=== PATIENT | female | born 1995 | race Caucasian/White ===

== ENCOUNTER → 2017-03-26 | Outpatient (CLI) | payer BC | END | disposition home or self-care (01) | LOC: C.PAPS 11:22 | PROVIDERS: ATTEND Obstetrics & Gynecology | DX: Z01.419 Encounter for gynecological examination (general) (routine) without abnormal findings (principal) ==

== ENCOUNTER → 2018-03-30 | Outpatient (CLI) | payer OTHER | END | disposition home or self-care (01) | LOC: C.LABSPEC 09:25 | PROVIDERS: ATTEND Obstetrics & Gynecology | DX: Z11.3 Encounter for screening for infections with a predominantly sexual mode of transmission (principal); Z11.8 Encounter for screening for other infectious and parasitic diseases ==

== ENCOUNTER → 2018-03-30 | Outpatient (CLI) | payer OTHER | END | disposition home or self-care (01) | LOC: C.PAPS 09:35 | PROVIDERS: ATTEND Obstetrics & Gynecology | DX: Z12.4 Encounter for screening for malignant neoplasm of cervix (principal) ==

== ENCOUNTER 2025-02-22 12:57 | Inpatient (IN) ==
[2025-02-22] MEDS ORDERED: LIDOCAINE 1% LOCAL 20 ML VIAL INFIL PRN (13:57)
[2025-02-22] MEDS ORDERED: CALCIUM CARBONATE 500 MG CHEWABLE TAB PO PRN (13:57)
--- NOTE | 2025-02-22 14:27 | History & Physical Report ---
Date of Service February 22, 2025 Assessment & Plan (1) Gestational diabetes: (2) Supervision of normal intrauterine in primigravida: Plan Pt is comfortable, but feeling regular contractions. Will consider ROM and epidural to progress labor as needed. - Consult to anesthesiology for epidural at pt's request - Consider ROM if pt desires/needed to progress labor - Consider Pitocin as needed for labor progression - Monitor progression of labor - Monitor BM's - CBC ordered History of Present Illness Chief Complaint: regular ctx Primary Care Provider: Jimenez Ramirez MD Carol is a 29 y/o female currently at 40/6 WGA with an CIARAN 02/18/25 as determined by LMP who is here for regular contractions and early labor. Her was complicated by GDM and hep B non-immune. Regular contractions; regular movement; no fluid loss; no bloody show Had regular appointments with OB. OB Labs: Blood Type O Positive 07/09/24 Antibody Screen NEGATIVE 07/09/24 Hgb 11.6 g/dl (12.0-16.0) L 12/02/24 Hct 34.5 % (37.0-47.0) L 12/02/24 MCV 87.1 fL (80.0-100.0) 07/09/24 Plt Count 355 K/uL (130-400) 07/09/24 Rubella IgG Antibody Immune (Immune) 07/09/24 Treponema pallidum Ab Negative (Negative) 12/02/24 Hep Bs Antigen Negative (Negative) 07/09/24 Hepatitis C Antibody Negative (Negative) 07/09/24 HIV 1&2 Ab/P24 Ag 4thGn Negative (Negative) 07/09/24 Glucose 1 Hr 50 gm 143 mg/dl (70-130) H 12/02/24 OB Optional Labs: Chlamydia trachomatis RNA Not Detected (NotDetected) 07/09/24 Neisseria gonorrhoeae RNA Not Detected (NotDetected) 07/09/24 Labs Reviewed: Declines carrier screening--mln Allergies Allergy/AdvReac Type Severity Reaction Status Date / Time No Known Allergies Allergy Verified 02/21/25 11:17 Home Medications Medication Instructions Recorded Confirmed Type calcium carbonate [Calcium 600] PO 01/27/24 02/21/25 History fish,bora,flax oils-om3,6,9no1 PO 01/27/24 02/21/25 History [[place] 3-6-9] folic acid PO 01/27/24 02/21/25 History prenat.vits,millie,myp-ihqo-mbmvr tab PO 01/27/24 02/21/25 History acetone (urine) test (Ketone Urine #50 ea 12/17/24 02/21/25 Rx Test strips) blood sugar diagnostic (OneTouch #150 ea 12/17/24 02/21/25 Rx Verio test strips) blood-glucose meter (OneTouch #1 ea 12/17/24 02/21/25 Rx Verio Reflect Meter) lancets 33 gauge (OneTouch Delica #150 ea 12/17/24 02/21/25 Rx Plus Lancet) Patient History Medical History (Updated 12/13/24 @ 11:38 by Mena Mistry) Varicella vaccination Missed Eustachian tube dysfunction Bilateral otitis media Surgical History Hx of elbow surgery Hx of oral surgery Family History Grandmother Alzheimer disease Other Hypertension Denies family history of Ovarian cancer Bipolar disorder Colorectal cancer Social History (Updated 07/02/24 @ 10:20 by Mena Mistry) Smoking Status: Never smoker Do You Dip or Chew Tobacco: No; Hx Alcohol Use: No Hx Substance Use: No Preferred Language: Andorran Hr Systems Analyst Required: No Beliefs That Will Affect Care: None marital status: marital status details: Luís Jones (34) [phone] Current Living Situation: Spouse Current Living Situation Comment: lives with spouse, dog current occupational status: employed current occupation: Realtor Feels Safe at Home: Yes Safety Concerns: Feels Safe At This Time Assistive Devices: None Review of Systems Denies fever, chills, sweats Denies shortness of breath, difficulty breathing, chest pain, palpitations, chest pressure. Denies breast pain. Denies dysuria. Denies headache or changes in vision Physical Exam Physical Exam: General: Alert, oriented. No acute distress. Cardiac: Regular rate and rhythm, no murmurs/rubs/gallops. Respiratory: Clear to auscultation bilaterally a/p, no wheezes/rales/rhonchi. No increased work of breathing. Symmetrical chest rise. No respiratory distress. Abdomen: Gravid; Position: Vertex Pelvic: Dilation 5 cm; Effacement 80%; Station +[address] Lynn Lower Extremities: No lower extremity edema or swelling. No deep calf pain. Miguel's negative bilaterally Results & Data Vital Signs (Past 12 Hours) Vital Signs Temp Pulse Resp BP 02/22/25 13:05 36.5 C 109 H 22 131/76 Monitoring External Monitor External FHT and external uterine monitors used; Category 1 tracing; moderate FHT variability. Tocodynamometer 60-80mmhg q5-7min Supervising Physician Co-Signing Physician Notes Resident Physician Supervision Note: I was present with Dr. Leonard during the history and exam. I discussed the case with the resident and agree with the findings and plan as documented in the note. Any exceptions or clarifications are listed here: at term in labor. sve as noted. fhts categ 1. preg c/b gdm, will check glucose q2hr in labor. gbs neg. admit. arom at next exam. epidural if desires. Documented By: Regina Lynn MD, FACOG Resident Activity Tracking Resident Involvement: Resident Care Provided Care Provided: Adult [facility]
[2025-02-22 14:30] LABS: Hematocrit (blood only) 34.1 % (37.0-47.0); Hemoglobin 11.5 g/dl (12.0-16.0); Mean Corpuscular Hemoglobin 27.4 pg (25.0-34.0); Mean Corpuscular Hgb Conc 33.7 g/dL (32.0-36.0); Mean Corpuscular Volume 81.2 fL (80.0-100.0); Mean Platelet Volume 10.1 fL (9.4-12.4); Platelet Count 342 K/uL (130-400); RDW Coefficient of Variation 14.6 % (11.5-14.5); RDW Standard Deviation 42.5 fL (36.4-46.3); White Blood Count 17.07 K/ul (4.8-10.8)
[2025-02-22] MEDS: LACTATED RINGER'S 1,000 ML IV PRN (14:54)
[2025-02-22] MEDS ORDERED: diphenhydrAMINE 50 MG/ML VIAL IV PRN (17:08)
[2025-02-22] MEDS ORDERED: NALOXONE HCL 0.4 MG/1 ML VIAL/CARP IV PRN (17:08)
[2025-02-22] MEDS ORDERED: fentANYL 2 MCG/ML BUPIVacaine 0.125%-NSS 100ML BAG EPI PRN (17:08)
[2025-02-22] MEDS ORDERED: ROPIVACAINE 0.5% PF 5 MG/ML 20 ML VIAL EPI PRN (17:08)
[2025-02-22] MEDS ORDERED: ePHEDrine sulfate 50 MG/ML AMP IV PRN (17:08)
[2025-02-22] MEDS ORDERED: NALBUPHINE HCL INJ 10 MG/ML AMP IV PRN (17:08)
[2025-02-22] MEDS ORDERED: fentaNYL citrate PF 100 MCG/2 ML VIAL EPI PRN (17:08)
[2025-02-22] MEDS ORDERED: SODIUM CHLORIDE 0.9% PF INJ 10 ML VIAL EPI PRN (17:08)
[2025-02-22] MEDS ORDERED: LIDOCAINE 2% MPF LOCAL 5 ML VIAL EPI PRN (17:08)
[2025-02-22] MEDS ORDERED: BUPIVACAINE 0.25% PF 30 ML VIAL EPI PRN (17:08)
[2025-02-22] MEDS ORDERED: NALOXONE HCL 1 MG in SODIUM CHLORIDE 0.9% 1,000 ML IV PRN (17:08)
--- NOTE | 2025-02-22 17:08 | Anesthesiology Consultation ---
Date of Service February 22, 2025 Assessment & Plan Chart Review Chart Review: Acceptable Risk for Labor Epidural Consults Requested none History Height/Weight Height: 5 ft 4 in Weight: 90.045 kg Allergies Allergy/AdvReac Type Severity Reaction Status Date / Time No Known Allergies Allergy Verified 02/21/25 11:17 Medications Home Medications Medication Instructions Recorded Confirmed Last Taken calcium carbonate [Calcium 600] PO 01/27/24 02/21/25 Unknown fish,bora,flax oils-om3,6,9no1 PO 01/27/24 02/21/25 Unknown [[place] 3-6-9] folic acid PO 01/27/24 02/21/25 Unknown prenat.vits,millie,dfy-rmah-ojqjd tab PO 01/27/24 02/21/25 Unknown acetone (urine) test (Ketone Urine #50 ea 12/17/24 02/21/25 Unknown Test strips) blood sugar diagnostic (OneTouch #150 ea 12/17/24 02/21/25 Unknown Verio test strips) blood-glucose meter (OneTouch #1 ea 12/17/24 02/21/25 Unknown Verio Reflect Meter) lancets 33 gauge (OneTouch Delica #150 ea 12/17/24 02/21/25 Unknown Plus Lancet) Active Medications Generic Name Dose Route Start Last Admin Trade Name Freq PRN Reason Stop Dose Admin Lactated Ringer's 1,000 mls @ 125 mls/hr 02/22/25 13:57 02/22/25 16:45 Lr IV 02/23/25 13:56 999 mls/hr .Q8H PRN Infusion L&D Protocol Protocol Past Medical History Medical History (Updated 12/13/24 @ 11:38 by Mena Mistry) Varicella vaccination Missed Eustachian tube dysfunction Bilateral otitis media Past Family History Family History Grandmother Alzheimer disease Other Hypertension Denies family history of Ovarian cancer Bipolar disorder Colorectal cancer Past Surgical History Surgical History Hx of elbow surgery Hx of oral surgery Social History Smoking Status: Never smoker Do You Dip or Chew Tobacco: No Hx Alcohol Use: No Hx Substance Use: No Physical Exam Vital Signs Last Vital Signs Temp 36.5 C 02/22/25 14:01 Pulse 88 02/22/25 17:03 Resp 22 02/22/25 14:01 BP 134/86 02/22/25 17:02 Pulse Ox 97 02/22/25 17:03 Testing Laboratory Results 02/22/25 14:09 02/22/25 15:27 POC Glucose 85
[2025-02-22] MEDS: fentANYL 2 MCG/ML BUPIVacaine 0.125%-NSS 100ML BAG ONE (17:20)
[2025-02-22] MEDS: LIDOCAINE 2%/EPINEPHRINE 1:200,000 20 ML PF ONE (17:20)
[2025-02-22] MEDS: BUPIVACAINE 0.25% PF 30 ML VIAL ONE (19:14)
[2025-02-22] MEDS: ePHEDrine sulfate 50 MG/ML AMP ONE (19:14)
[2025-02-22] MEDS: fentaNYL citrate PF 100 MCG/2 ML VIAL ONE (19:14)
[2025-02-22] MEDS: SODIUM CHLORIDE 0.9% PF INJ 10 ML VIAL ONE (19:15)
[2025-02-22] MEDS: fentaNYL citrate PF 100 MCG/2 ML VIAL EPI STA (19:15)
[2025-02-22] MEDS: BUPIVACAINE 0.25% PF 30 ML VIAL EPI STA (19:15)
[2025-02-22] MEDS: SODIUM CHLORIDE 0.9% PF INJ 10 ML VIAL EPI STA (19:15)
[2025-02-22] MEDS: LIDOCAINE 2%/EPINEPHRINE 1:200,000 20 ML PF EPI STA (19:15)
--- NOTE | 2025-02-22 19:26 | Labor Progress Brief Note ---
Date of Service February 22, 2025 Subjective pt comfortable with epidural. Assessment & Plan (1) Normal labor: (2) Gestational diabetes: Plan will see how arom helps her labor. fhts categ 1. Physical Exam Constitutional: WD/WN, vitals as above Genitourinary: Manual OB Exam: + cervical dilation 7 cm, + cervical effacement (thick ant lip) 100% and + station 0 OB Exam Monitor Tracing: + external FHT monitor used, + external uterine monitor used (irreg), + category I and + normal FHT variability Results & Data Vital Signs (Past 12 Hours) Vital Signs Temp Pulse Resp BP Pulse Ox 02/22/25 19:18 96 02/22/25 19:18 90 02/22/25 19:13 96 02/22/25 19:13 88 02/22/25 19:12 85 02/22/25 19:12 140/85 02/22/25 19:08 96 02/22/25 19:08 111 H 02/22/25 19:03 96 02/22/25 19:03 89 02/22/25 18:58 96 02/22/25 18:58 88 02/22/25 18:57 18 02/22/25 18:57 97.7 F 18 02/22/25 18:57 82 02/22/25 18:57 133/76 02/22/25 18:53 97 02/22/25 18:53 98 H 02/22/25 18:48 96 02/22/25 18:48 85 02/22/25 18:43 97 02/22/25 18:43 103 H 02/22/25 18:43 93 H 02/22/25 18:43 111/79 02/22/25 18:38 97 02/22/25 18:38 92 H 02/22/25 18:33 96 02/22/25 18:33 86 02/22/25 18:28 97 02/22/25 18:28 87 02/22/25 18:25 86 02/22/25 18:25 122/77 02/22/25 18:23 96 02/22/25 18:23 84 02/22/25 18:20 97 H 02/22/25 18:20 120/75 02/22/25 18:18 97 02/22/25 18:18 87 02/22/25 18:15 91 H 02/22/25 18:15 123/75 02/22/25 18:13 98 02/22/25 18:13 90 02/22/25 18:11 87 02/22/25 18:11 122/70 02/22/25 18:08 96 02/22/25 18:08 98 H 02/22/25 18:06 88 02/22/25 18:06 114/61 02/22/25 18:03 97 02/22/25 18:03 88 02/22/25 18:00 93 H 02/22/25 18:00 130/73 02/22/25 17:58 96 02/22/25 17:58 93 H 02/22/25 17:56 90 02/22/25 17:56 132/78 02/22/25 17:53 96 02/22/25 17:53 99 H 02/22/25 17:51 96 H 02/22/25 17:51 131/71 02/22/25 17:48 97 02/22/25 17:48 95 H 02/22/25 17:45 96 H 02/22/25 17:45 127/64 02/22/25 17:43 95 02/22/25 17:43 87 02/22/25 17:39 96 H 02/22/25 17:39 127/74 02/22/25 17:38 96 02/22/25 17:38 96 H 02/22/25 17:37 88 02/22/25 17:37 127/72 02/22/25 17:35 90 02/22/25 17:35 122/70 02/22/25 17:33 96 02/22/25 17:33 93 H 02/22/25 17:33 125/65 02/22/25 17:31 100 H 02/22/25 17:31 131/74 02/22/25 17:29 92 H 02/22/25 17:29 139/67 02/22/25 17:28 96 02/22/25 17:28 96 H 02/22/25 17:27 91 H 02/22/25 17:27 146/77 H 02/22/25 17:25 96 H 02/22/25 17:25 154/80 H 02/22/25 17:23 97 02/22/25 17:23 101 H 02/22/25 17:18 97 02/22/25 17:18 96 H 02/22/25 17:13 97 02/22/25 17:13 95 H 02/22/25 17:10 92 02/22/25 17:10 110 H 02/22/25 17:08 98 02/22/25 17:08 91 H 02/22/25 17:03 97 02/22/25 17:03 88 02/22/25 17:02 81 02/22/25 17:02 134/86 02/22/25 14:01 97.7 F 109 H 22 131/76 02/22/25 13:05 97.7 F 109 H 22 131/76 Coding Level of Care Code None Diagnoses Normal labor O80; Z37.9 Gestational diabetes O24.419
[2025-02-22] MEDS: OXYTOCIN 30 UNITS/NSS 30 UNITS/500 ML BAG IV PRN ×2 (19:57→21:43)
--- NOTE | 2025-02-22 21:54 | Delivery Summary ---
Vaginal Delivery Summary Date of Service February 22, 2025 Vaginal Delivery Summary The patient dilated to complete and pushed to deliver a viable male Apgars 6 and 8 via over 2nd degree perineal laceration. Mouth and nose bulb suctioned at perineum. Loose nuchal x 1 reduced. Mild shoulder dystocia encountered, relieved by Tres maneuvers, gentle downward traction and continued effective maternal expulsive efforts. Body then delivered with ease. Infant was not vigorous at first and cord clamped and infant to maternal abdomen where the cord was then doubly clamped and cut and cried more on maternal abdomen with drying and attention. Placenta delivered spontaneously and intact, three-vessel cord. Hemostasis achieved with dilute pitocin and uterine massage. Cervix and sulci intact. Laceration repaired in layers with 3-0 vicryl in usual fashion. QBL 156 cc. Mother and baby stable in recovery. [facility] Vaginal Delivery Charge Delivery Type Details:
[2025-02-23] MEDS ORDERED: ACETAMINOPHEN 325 MG TAB PO PRN (00:12)
[2025-02-23] MEDS ORDERED: IBUPROFEN 600 MG TAB PO PRN (00:12)
[2025-02-23] MEDS ORDERED: OXYTOCIN 30 UNITS/NSS 30 UNITS/500 ML BAG IV PRN (00:12)
[2025-02-23] MEDS ORDERED: HYDROCORTISONE ACETATE 25 MG SUPP PR PRN (00:12)
[2025-02-23] MEDS ORDERED: oxyCODONE/ACETAMINOPHEN 5mg/325mg TAB PO PRN (00:12)
[2025-02-23] MEDS: BENZOCAINE 20% SPRY 85 APPLN/85 GM CAN EXT PRN (02:37)
--- NOTE | 2025-02-23 06:29 | Obstetrical Progress Note ---
Date of Service February 23, 2025 Assessment & Plan (1) Encounter for care and examination after delivery: Plan Pt doing well - Encourage ambulation and breast feeding - Pain control with tylenol and ibuprofen - Likely discharge 02/24 Admission and Anticipated Discharge Date Admission Date: February 22, 2025 Supervising Physician Co-Signing Physician Notes Resident Physician Supervision Note: I was present with Dr. Leonard during the history and exam. I discussed the case with the resident and agree with the findings and plan as documented in the note. Any exceptions or clarifications are listed here: stable routine care. eating, voiding, ambulating, abd soft ff 2 down nt, nt calves. ppd#1 s/p , routine care. breast, rhpos, ri. Documented By: Regina Lynn MD, FACOG Subjective Pt is 29 yo post- day 1 s/p at 40w6d Ambulation:In room Voiding:voiding normally Passing gas: yes BM: No Diet tolerance:regular diet Lochia:bloody, no clots Feeding type: breast Current pain level: 0 /10 Resting comfortably this morning in NAD. Denies MAGALLANES, CP, SOB, N/V/D, LE pain/swelling. Review of Systems Review of Systems: As per HPI Physical Exam Constitutional: WD/WN, vitals as above Respiratory: normal respiratory effort, lungs clear to auscultation Gastrointestinal (Abdomen): normal bowel sounds, soft, nontender, no hepatosplenomegaly Uterine fundus firm and at level of umbilicus Neurologic: PERRL, EOMI, accommodation nl, no face palsy, no dysarthria Moving all 4 extremities on command Psychiatric: A+Ox3, euthymic affect Results & Data Vital Signs (Past 12 Hours) Vital Signs Temp Pulse Pulse Resp BP BP Pulse Ox 02/23/25 05:30 36.5 C 81 16 112/72 99 02/23/25 00:25 36.6 C 94 H 16 127/76 98 02/22/25 23:56 18 02/22/25 23:56 18 02/22/25 23:56 86 02/22/25 23:56 121/66 02/22/25 23:42 88 02/22/25 23:42 126/72 02/22/25 23:27 18 02/22/25 23:27 18 02/22/25 23:27 83 02/22/25 23:27 116/70 02/22/25 23:12 83 02/22/25 23:12 118/66 02/22/25 22:57 18 02/22/25 22:57 18 02/22/25 22:57 107 H 02/22/25 22:57 117/71 02/22/25 22:44 18 02/22/25 22:44 18 02/22/25 22:44 90 02/22/25 22:44 118/67 02/22/25 22:27 18 02/22/25 22:27 18 02/22/25 22:27 99 H 02/22/25 22:27 142/73 H 02/22/25 22:12 18 02/22/25 22:12 18 02/22/25 22:12 106 H 02/22/25 22:12 136/70 02/22/25 22:04 18 02/22/25 22:04 18 02/22/25 22:04 94 H 02/22/25 22:04 132/73 02/22/25 22:00 94 02/22/25 22:00 95 H 02/22/25 21:58 96 02/22/25 21:58 102 H 02/22/25 21:53 97 02/22/25 21:53 110 H 02/22/25 21:48 96 02/22/25 21:48 94 H 02/22/25 21:46 94 02/22/25 21:46 103 H 02/22/25 21:43 99 02/22/25 21:43 187 H 02/22/25 21:42 134 H 02/22/25 21:42 137/54 L 02/22/25 21:38 87 L 02/22/25 21:38 150 H 02/22/25 21:33 95 02/22/25 21:33 110 H 02/22/25 21:29 90 02/22/25 21:29 99 H 02/22/25 21:28 97 02/22/25 21:28 102 H 02/22/25 21:28 98 H 02/22/25 21:28 136/86 02/22/25 21:23 97 02/22/25 21:23 92 H 02/22/25 21:19 94 02/22/25 21:19 84 02/22/25 21:18 97 02/22/25 21:18 86 02/22/25 21:13 95 02/22/25 21:13 83 02/22/25 21:13 124/78 02/22/25 21:10 93 02/22/25 21:10 90 02/22/25 21:08 98 02/22/25 21:08 91 H 02/22/25 21:03 97 02/22/25 21:03 73 02/22/25 20:58 95 02/22/25 20:58 70 02/22/25 20:57 70 02/22/25 20:57 115/69 02/22/25 20:53 96 02/22/25 20:53 72 02/22/25 20:48 98 02/22/25 20:48 77 02/22/25 20:43 96 02/22/25 20:43 78 02/22/25 20:42 71 02/22/25 20:42 116/67 02/22/25 20:38 95 02/22/25 20:38 80 02/22/25 20:33 96 02/22/25 20:33 85 02/22/25 20:28 97 02/22/25 20:28 77 02/22/25 20:27 81 02/22/25 20:27 119/65 02/22/25 20:23 95 02/22/25 20:23 81 02/22/25 20:18 96 02/22/25 20:18 77 02/22/25 20:13 96 02/22/25 20:13 77 02/22/25 20:12 76 02/22/25 20:12 120/68 02/22/25 20:08 97 02/22/25 20:08 75 02/22/25 20:03 97 02/22/25 20:03 78 02/22/25 20:00 94 02/22/25 20:00 99 H 02/22/25 19:58 97 02/22/25 19:58 82 02/22/25 19:58 77 02/22/25 19:58 117/73 02/22/25 19:53 96 02/22/25 19:53 88 02/22/25 19:48 95 02/22/25 19:48 85 02/22/25 19:43 97 02/22/25 19:43 84 02/22/25 19:42 76 02/22/25 19:42 127/76 02/22/25 19:38 98 02/22/25 19:38 84 02/22/25 19:33 94 02/22/25 19:33 87 02/22/25 19:30 94 02/22/25 19:30 85 02/22/25 19:28 95 02/22/25 19:28 81 02/22/25 19:28 80 02/22/25 19:28 132/73 02/22/25 19:23 95 02/22/25 19:23 96 H 02/22/25 19:18 96 02/22/25 19:18 90 02/22/25 19:13 96 02/22/25 19:13 88 02/22/25 19:12 85 02/22/25 19:12 140/85 02/22/25 19:08 96 02/22/25 19:08 111 H 02/22/25 19:03 96 02/22/25 19:03 89 02/22/25 18:58 96 02/22/25 18:58 88 02/22/25 18:57 18 02/22/25 18:57 36.5 C 18 02/22/25 18:57 82 02/22/25 18:57 133/76 02/22/25 18:53 97 02/22/25 18:53 98 H 02/22/25 18:48 96 02/22/25 18:48 85 02/22/25 18:43 97 02/22/25 18:43 103 H 02/22/25 18:43 93 H 02/22/25 18:43 111/79 02/22/25 18:38 97 02/22/25 18:38 92 H 02/22/25 18:33 96 02/22/25 18:33 86 02/22/25 18:28 97 02/22/25 18:28 87 O2 Del Method 02/23/25 05:30 Room Air 02/23/25 00:25 Room Air 02/22/25 23:56 02/22/25 23:56 02/22/25 23:56 02/22/25 23:56 02/22/25 23:42 02/22/25 23:42 02/22/25 23:27 02/22/25 23:27 02/22/25 23:27 02/22/25 23:27 02/22/25 23:12 02/22/25 23:12 02/22/25 22:57 02/22/25 22:57 02/22/25 22:57 02/22/25 22:57 02/22/25 22:44 02/22/25 22:44 02/22/25 22:44 02/22/25 22:44 02/22/25 22:27 02/22/25 22:27 02/22/25 22:27 02/22/25 22:27 02/22/25 22:12 02/22/25 22:12 02/22/25 22:12 02/22/25 22:12 02/22/25 22:04 02/22/25 22:04 02/22/25 22:04 02/22/25 22:04 02/22/25 22:00 02/22/25 22:00 02/22/25 21:58 02/22/25 21:58 02/22/25 21:53 02/22/25 21:53 02/22/25 21:48 02/22/25 21:48 02/22/25 21:46 02/22/25 21:46 02/22/25 21:43 02/22/25 21:43 02/22/25 21:42 02/22/25 21:42 02/22/25 21:38 02/22/25 21:38 02/22/25 21:33 02/22/25 21:33 02/22/25 21:29 02/22/25 21:29 02/22/25 21:28 02/22/25 21:28 02/22/25 21:28 02/22/25 21:28 02/22/25 21:23 02/22/25 21:23 02/22/25 21:19 02/22/25 21:19 02/22/25 21:18 02/22/25 21:18 02/22/25 21:13 02/22/25 21:13 02/22/25 21:13 02/22/25 21:10 02/22/25 21:10 02/22/25 21:08 02/22/25 21:08 02/22/25 21:03 02/22/25 21:03 02/22/25 20:58 02/22/25 20:58 02/22/25 20:57 02/22/25 20:57 02/22/25 20:53 02/22/25 20:53 02/22/25 20:48 02/22/25 20:48 02/22/25 20:43 02/22/25 20:43 02/22/25 20:42 02/22/25 20:42 02/22/25 20:38 02/22/25 20:38 02/22/25 20:33 02/22/25 20:33 02/22/25 20:28 02/22/25 20:28 02/22/25 20:27 02/22/25 20:27 02/22/25 20:23 02/22/25 20:23 02/22/25 20:18 02/22/25 20:18 02/22/25 20:13 02/22/25 20:13 02/22/25 20:12 02/22/25 20:12 02/22/25 20:08 02/22/25 20:08 02/22/25 20:03 02/22/25 20:03 02/22/25 20:00 02/22/25 20:00 02/22/25 19:58 02/22/25 19:58 02/22/25 19:58 02/22/25 19:58 02/22/25 19:53 02/22/25 19:53 02/22/25 19:48 02/22/25 19:48 02/22/25 19:43 02/22/25 19:43 02/22/25 19:42 02/22/25 19:42 02/22/25 19:38 02/22/25 19:38 02/22/25 19:33 02/22/25 19:33 02/22/25 19:30 02/22/25 19:30 02/22/25 19:28 02/22/25 19:28 02/22/25 19:28 02/22/25 19:28 02/22/25 19:23 02/22/25 19:23 02/22/25 19:18 02/22/25 19:18 02/22/25 19:13 02/22/25 19:13 02/22/25 19:12 02/22/25 19:12 02/22/25 19:08 02/22/25 19:08 02/22/25 19:03 02/22/25 19:03 02/22/25 18:58 02/22/25 18:58 02/22/25 18:57 02/22/25 18:57 02/22/25 18:57 02/22/25 18:57 02/22/25 18:53 02/22/25 18:53 02/22/25 18:48 02/22/25 18:48 02/22/25 18:43 02/22/25 18:43 02/22/25 18:43 02/22/25 18:43 02/22/25 18:38 02/22/25 18:38 02/22/25 18:33 02/22/25 18:33 02/22/25 18:28 02/22/25 18:28 Resident Activity Tracking Resident Involvement: Resident Care Provided Care Provided: Adult Hospital Medicine
[2025-02-23] MEDS: DOCUSATE SODIUM 100 MG CAP PO SCH (08:12)
[2025-02-23] MEDS: PRENATAL VITAMIN 1 TAB PO SCH (08:12)
--- NOTE | 2025-02-23 09:34 | Anesthesia Procedure Note ---
Date of Service February 23, 2025 Anesthesia Post Epidural Note Vital Signs Vital Signs: Temp Pulse Resp BP Pulse Ox O2 Del Method 36.5 C 83 18 119/78 99 Room Air 02/23/25 08:10 02/23/25 08:10 02/23/25 08:10 02/23/25 08:10 02/23/25 05:30 02/23/25 08:10 Pain Intensity Episiotomy/Laceration: Pain Intensity: 1 Notes Mental Status: alert / awake / arousable Nausea / Vomiting: adequately controlled Pain: adequately controlled Airway Patency, RR, SpO2: stable & adequate BP & HR: stable & adequate Hydration State: stable & adequate Neuraxial Anesthesia: was administered and sensory block is resolving Anesthetic Complications: no major complications apparent and Pt Satisfied with anesthetic care Epidural: Removed without complications and With tip intact
[2025-02-23 17:22] VITALS: TEMP 98.1
[2025-02-23] MEDS: bisacodyL 5 MG TABEC PO SCH (20:04)
--- NOTE | 2025-02-24 06:02 | Obstetrical Progress Note ---
Date of Service February 24, 2025 Assessment & Plan (1) Encounter for care and examination after delivery: Plan Pt is 29 yo post- day 2 s/p at 40w6d. Pt doing well - Encourage ambulation and breast feeding - Pain control with tylenol and ibuprofen - Discharge today Admission and Anticipated Discharge Date Admission Date: February 22, 2025 Supervising Physician Co-Signing Physician Notes Resident Physician Supervision Note: I was present with Dr. Leonard during the history and exam. I discussed the case with the resident and agree with the findings and plan as documented in the note. Any exceptions or clarifications are listed here: Doing well. Patient desires d/c today. Instructions reviewed. f/ u in the office in 6 weeks. Documented By: Marybeth Forrester MD, FACOG Subjective Pt is 29 yo post- day 2 s/p at 40w6d Ambulation:In room Voiding:voiding normally Passing gas: yes BM: No Diet tolerance:regular diet Lochia:bloody, occasional clots Feeding type: breast Current pain level: 0-3 /10 Resting comfortably this morning in NAD. Denies MAGALLANES, CP, SOB, N/V/D, LE pain/swelling. Review of Systems Review of Systems: As per HPI Physical Exam Constitutional: WD/WN, vitals as above Respiratory: normal respiratory effort, lungs clear to auscultation Cardiovascular: RRR, no murmur, no edema Gastrointestinal (Abdomen): normal bowel sounds, soft, nontender, no hepatosplenomegaly Uterine fundus is firm and 2 cm below level of umbilicus Neurologic: PERRL, EOMI, accommodation nl, no face palsy, no dysarthria Psychiatric: A+Ox3, euthymic affect Results & Data Vital Signs (Past 12 Hours) Vital Signs Temp Pulse Resp BP Pulse Ox O2 Del Method 02/23/25 23:15 36.7 C 76 18 126/78 98 Room Air 02/23/25 20:00 36.7 C 85 18 119/76 98 Room Air Resident Activity Tracking Resident Involvement: Resident Care Provided Care Provided: Adult Hospital Medicine
[2025-02-24] MEDS: DIPHTHER/TETAN/PERTUS Vaccine (Tdap, Adol/Adult) 0.5mL IM ONE (07:26)
[2025-02-24 07:55] VITALS: BP 127/83; PULSE 83; RESP 16; O2SAT 100
== END 2025-02-24 12:30 | disposition home or self-care (01) | DRG 807 ==
LOC: OPB 12:57 → 4S1 13:00 → 4E2 02-23 00:30